=== PATIENT | female | born 1995 | race Caucasian/White ===

== ENCOUNTER 2024-07-06 01:20 | Emergency (ER) | payer OTHER ==
[~2024-07-06] VITALS: Ht 160 cm; Wt 74.4 kg
[2024-07-06 01:50] VITALS: BP 145/87; TEMP 98.2; O2SAT 96
[2024-07-06] MEDS ORDERED: AZITHROMYCIN 250 MG TABLET ONE (02:01)
[2024-07-06] MEDS: AZITHROMYCIN 250 MG TABLET PO ONE (02:05)
[2024-07-06] MEDS ORDERED: AZIT500T4 PO (02:06)
== END 2024-07-06 02:10 | disposition home or self-care (01) ==
LOC: ER 01:22
DX: J32.9 Chronic sinusitis, unspecified (principal); J34.89 Other specified disorders of nose and nasal sinuses; R09.81 Nasal congestion